=== PATIENT | female | born 1990 | race Caucasian/White ===

== ENCOUNTER 2016-12-01 22:38 | Emergency (ER) | payer SELFPAY ==
[~2016-12-01] VITALS: Ht 162.6 cm; Wt 49.9 kg
[2016-12-01 23:48] VITALS: BP 121/64; PULSE 66; RESP 11; TEMP 97.8; O2SAT 99
[2016-12-02 02:40] LABS: BASOPHILS # (AUTO) 0.1 K/uL (0.0-0.2); BASOPHILS % (AUTO) 1.1 % (0.0-2.0); EOSINOPHILS # (AUTO) 0.1 K/uL (0.0-0.4); EOSINOPHILS % (AUTO) 2.5 % (0.0-4.0); HEMATOCRIT 40.4 % (36-48); HEMOGLOBIN 13.6 g/dL (12.0-16.0); LYMPHOCYTES # (AUTO) 2.3 K/uL (1.0-5.5); LYMPHOCYTES % (AUTO) 46.6 % (20.5-51.5); MEAN CORPUSCULAR HEMOGLOBIN 29 pg (27-31); MEAN CORPUSCULAR HGB CONC 34 % (32-36); MEAN CORPUSCULAR VOLUME 87 fL (79.0-98.0); MONOCYTES # (AUTO) 0.7 K/uL (0.0-1.0); MONOCYTES % (AUTO) 12.5 % (1.7-9.3); RED BLOOD CELL COUNT(AUTO) 4.63 MIL/uL (4.2-6.2); RED CELL DISTRIBUTION WIDTH 12.2 % (9.0-15.0); WHITE BLOOD COUNT (AUTO) 5.2 K/uL (4.8-10.8)
[2016-12-02] MEDS ORDERED: traMADol HCL HCL 50 MG TABLET (ULTRAM) PO ONE (02:45)
[2016-12-02 02:50] LABS: PLATELET COUNT (AUTO) 37 K/uL (130-430)
[2016-12-02 03:40] LABS: NEUTROPHILS % (AUTO) 37.3 % (40.0-70.0)
[2016-12-02 04:43] VITALS: BP 118/59; PULSE 68; RESP 16; TEMP 97.8; O2SAT 99
== END 2016-12-02 04:43 | disposition home or self-care (01) ==
LOC: SED 22:38
DX: S13.4XXA Sprain of ligaments of cervical spine, initial encounter (principal); S40.811A Abrasion of right upper arm, initial encounter; S50.02XA Contusion of left elbow, initial encounter; E03.9 Hypothyroidism, unspecified; V89.2XXA Person injured in unspecified motor-vehicle accident, traffic, initial encounter; Y93.89 Activity, other specified; Y92.410 Unspecified street and highway as the place of occurrence of the external cause; Y99.8 Other external cause status
CPT/HCPCS: 36415; 70450-TC; 72125-TC; 85025; 99285